=== PATIENT | female | born 1995 | race Caucasian/White ===

== ENCOUNTER 2017-04-03 15:26 | Inpatient (IN) | payer OTHER ==
[~2017-04-03] VITALS: Ht 172.7 cm; Wt 81.6 kg
[~2017-04-03 15:26] MED LIST: SUMATRIPTAN SUC25 MG PO
[2017-04-03] MEDS ORDERED: PRENATAL TABLE1 EAC2 PO (16:06)
[2017-04-03 16:38] LABS: ABSOLUTE BASOPHIL COUNT 0 /CUMM (0.0-0.2); ABSOLUTE EOSINOPHIL COUNT 0 /CUMM (0.0-0.7); ABSOLUTE LYMPH COUNT 1.8 /CUMM (1.2-3.4); ABSOLUTE MONOCYTE COUNT 0.6 /CUMM (0.10-0.60); BASOPHIL % 0.5 % (0.0-2.0); EOSINOPHIL % 0.5 % (0-5); GRANULOCYTE % 73.3 % (42.2-75.2); HEMATOCRIT 30.5 % (37-47); MEAN CORPUSCULAR HGB 24.6 PG (27.0-31.0); MEAN CORPUSCULAR HGB CONC 32.1 G/DL (33.0-37.0); MEAN CORPUSCULAR VOLUME 76.5 FL (81.0-99.0); MEAN PLATELET VOLUME 8.1 FL (7.4-10.4); PLATELET COUNT 306 /CUMM (130-400); RBC DISTRIBUTION WIDTH 17.2 % (11.5-14.5); RED BLOOD CELL CT 3.99 /CUMM (4.20-5.40); WHITE BLOOD CELL COUNT 9.5 /CUMM (4.8-10.8)
--- NOTE | 2017-04-03 18:26 | History & Physical ---
General Information and HPI MD Statement: I have seen and personally examined VIVI BYERS and documented this H&P. The patient is a 21 year old female at 40 weeks and 0 days gestation who presented with a chief complaint of elevated blood pressure in the outpatient setting. Source of Information: patient, old records Exam Limitations: no limitations History of Present Illness: Patient is a 21 year old female who is 40 weeks gestation who had follow up ob visit and noted with elevated bp. No symptoms of preeeclampsia and good movement. 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 Home Who Do You Live With? self Primary Language: Gabonese Smoking Status: Never Smoked ETOH Use: Use noted prior to 20th week as unknown was per patient Illicit Drug Use: denies illicit drug use Living Will? 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 EENTM: Denies: no symptoms. Cardiovascular: Denies: no symptoms. Respiratory: Denies: no symptoms. GI: Denies: no symptoms. Genitourinary: Denies: no symptoms. Musculoskeletal: Denies: no symptoms. Skin: Reports: rash. Neurological/Psychological: Denies: no symptoms. Hematologic/Endocrine: Denies: no symptoms. Immunologic/Allergic: Denies: no symptoms. All Other Systems: Reviewed and Negative Post Menopausal: No Date of Last Pap Smear: 12/17/14 Exam & Diagnostic Data Last 24 Hrs of Vital Signs/I&O See paper record Obstetric Exam Wgt Gained During : 46 lbs Pelvimetry: Gynecoid and normal subpubic angle Dilation (cm): 1 Effacement (%): 50 Station: -2 Membranes: intact Fluid: Intact Fundal Height (cm): 39 Multiple Gestation? No Contractions: Q 2-4 #1 - FHR Baseline: 140 Category: 1 Estimated Weight: EFW by ultrasound 3071 grams (1pd32ks) Presentation: Cephalic Patient for Induction? Yes Jolly Score Jolly Score Response Value Cervix Position: posterior 0 Cervix Consistency: soft 2 Cervix Effacement: 30-50% 1 Cervix Dilation: 1-2 cm 1 Cervix Station: -2 1 Total 5 Physical Exam General Appearance Alert, Oriented X3, Cooperative, No Acute Distress Skin Rash noted bilateral lower extremity. HEENT Atraumatic, PERRLA, EOMI, Mucous Membr. moist/pink Neck Supple Lymphatic Axillary nl, Cervical nl Cardiovascular Regular Rate, No Murmurs Lungs Clear to Auscultation, Normal Air Movement Abdomen Soft, No Tenderness Neurological Normal Gait, Normal Speech, Strength at 5/5 X4 Ext, Normal Tone, Sensation Intact, Cranial Nerves 3-12 NL, 3+ reflexes Extremities No Edema, Normal Pulses, No Tenderness/Swelling Vascular Pulses Symmetrical Breasts Breast appear nl Reproductive (FEMALE) Normal female genitalia Pelvic (FEMALE) Appearance Normal, No Cervical Tenderness Labs Blood Type & Rh: A positive Antibody Screen: negative Hct/Hgb & Platelets #1: 30.4/332 Hct/Hgb & Platelets #2: NA Rubella: immune VDRL #1: negative VDRL #2: negative HbsAg: negative HIV #1: negative HIV #2 negative 1 Hr P 3 Hr PG: NA Group B Strep: Negative Initial Ultrasound: Level 2 wnl except for cardiac focus Anatomy Ultrasound: As noted Ultrasound for EFW: Today's US. BPD 9.21 =37.3 HC 32.83 37.2 AC 34.12 38 FL 6.6 cm 34 weeks MVP 5 cm BPP 8/8 Posterior placenta OP rotation of head. Genetic Testing: Panorama wnl and AFP wnl Horizon carrier screen. CF negative, DMD negative, Fragile X negative and SMA negative Last 24 Hrs of Labs/Derick: Laboratory Tests 01/30/18 1545: Ur Random Creatinine 62.2, U Random Total Protein 650 H, Protein/Creatinin Ratio 10.4 H 04/03/17 1545: CBC w Diff NO MAN DIFF REQ, RBC 3.99 L, MCV 76.5 L, MCH 24.6 L, MCHC 32.1 L, RDW 17.2 H, MPV 8.1, Gran % 73.3, Lymphocytes % 19.3 L, Monocytes % 6.4, Eosinophils % 0.5, Basophils % 0.5, Absolute Granulocytes 7.0 H, Absolute Lymphocytes 1.8, Absolute Monocytes 0.6, Absolute Eosinophils 0, Absolute Basophils 0, HIV 1&2 Ab Western Blot NONREACTIVE, Urinalysis LIGHT H, Urine Color YEL, Urine Clarity CLEAR, Urine pH 6.5, Ur Specific [place] 1.020, Urine Protein >=300 H, Urine Ketones NEG, Urine Nitrite NEG, Urine Bilirubin NEG, Urine Urobilinogen 0.2, Ur Leukocyte Esterase SMALL H, Ur Microscopic SEDIMENT EXAMINED, Urine RBC 1-3, Urine WBC 5-10 H, Ur Epithelial Cells MOD H, Urine Bacteria FEW H, Urine Mucus FEW, Urine Hemoglobin SMALL H, Urine Glucose NEG 04/03/17 1542: Estimated GFR > 60, Uric Acid 6.7 H, AST 28, ALT 42, Lactate Dehydrogenase 537 Assessment/Plan Assessment/Plan: 21 year old with complicated by late entry to care, cardiac focus on fetus, anemia and now with preeclampsia as based on elevated bp and abnormal PC ratio. Patient is though not with preeclampsia with severe features. Jolly score that is unfavorable and she is with a Catagory 1 tracing and a fetus of AGA weight and normal amniotic fluid volume. Patient GBBS negative and hepatitis B nonimmune but negative for Hepatitis B surface antigen 1) Induction of labor indicated for mild preeclampsia at term. I used a mandel given her jolly score instead of misoprostol as she is tonia well. Goal for mandel to remain for 8-12 hours and then reassess cervix. Goals for induction to reduce sequelae related to preeclampsia ie heelp, eclampsia, stroke , liver rupture and or and also to reduce abruption and stillbirth. Given her score that is less than 6 her success at present for vaginal is 50% however with the cervical ripening the goal would be to improve that score and lessen her chance of failure. Risks of induction being pain, failure, abnormal heart rate and or infection. 2) Preeclampsia. Discussed implications to patient of this condition. Potential need for antiHTN agents and also future risk of HTN and Stroke. For future recommend ASA to start by 12-14 weeks to reduce future risks. Potential for Magnesium reviewed. Potential for intrapartum antiHTN agents reviewed. Serial lab tests q6 hours to establish stability and for assessment of heelp. 3) Labor pain mgmt reviewed. Platelets are wnl so epidural is an option however she did consent to nitrous should the need arise. 4) VTE risk reduction with alps while in labor. She plans on breast feeding so at present no meds are contraindicated for same. GBBS negative so no need for PCN unless fever in labor. Epidural and misoprostol may have pyrexia as side effects. May have clears while in labor. Treatment plan reviewed with patient. Expectations reviewed with patient and partner Peds at delivery if abnormal tracing and or need for magnesium. She is up to date with influenza and tdap but will need hepatitis b vaccine again. Breast feeding counseling reviewed and she did go to childbirth classes. Anemia to be rectified with supplementation. As Ranked By This Provider Problem List: 1. Preeclampsia 2. 3. Anemia affecting Core Measures Venous Thromboembolism VTE Risk Factors / No Mechanical VTE Prophylaxis d/t N/A MechProphylax Ordered No VTE Pharm Prophylaxis d/t Other Attending MD Review Statement Attending Statement Attending MD Statement: examined this patient, discussed with family, discussed w/nursing Attending Assessment/Plan: As above
--- NOTE | 2017-04-03 18:27 | PN- OBGYN ---
Surgical Brief Attending Note Brief Attending Note: Transcervical mandel placed in aspeptic technique. Tolerated well EBL 0 cc 24 swedish mandle and 30 cc of saline introduced Taped to leg under tension.
--- NOTE | 2017-04-03 23:04 | PN- OBGYN ---
Surgical Brief Attending Note Brief Attending Note: BP 150/90 Catagory 1 tracing Q2-3 contractions Per patient they are more painful than prior. Allow 12 hours for mandel in cervix If bp greater than 160/105 than start anti HTN and magnesium She is asymptomatic of preeclampsia symptoms Watch urine output Labs pending Previous show no findings of HEELP.
[2017-04-03 23:45] LABS: ABSOLUTE BASOPHIL COUNT 0 /CUMM (0.0-0.2); ABSOLUTE EOSINOPHIL COUNT 0 /CUMM (0.0-0.7); ABSOLUTE GRANULOCYTE CT 10.7 /CUMM (1.4-6.5); ABSOLUTE LYMPH COUNT 1.6 /CUMM (1.2-3.4); ABSOLUTE MONOCYTE COUNT 0.9 /CUMM (0.10-0.60); BASOPHIL % 0.3 % (0.0-2.0); EOSINOPHIL % 0.2 % (0-5); GRANULOCYTE % 80.6 % (42.2-75.2); HEMATOCRIT 29.9 % (37-47); MEAN CORPUSCULAR HGB 24.1 PG (27.0-31.0); MEAN CORPUSCULAR HGB CONC 31.4 G/DL (33.0-37.0); MEAN CORPUSCULAR VOLUME 76.9 FL (81.0-99.0); MEAN PLATELET VOLUME 8.5 FL (7.4-10.4); PLATELET COUNT 290 /CUMM (130-400); RBC DISTRIBUTION WIDTH 17.4 % (11.5-14.5); RED BLOOD CELL CT 3.89 /CUMM (4.20-5.40); WHITE BLOOD CELL COUNT 13.2 /CUMM (4.8-10.8)
--- NOTE | 2017-04-04 02:04 | PN- OBGYN ---
Surgical Brief Attending Note Brief Attending Note: Summary of events C/o pain to nurses and bp was elevated to over 160/90. I ordered stadol and started magnesium for seizure prophylaxis BP now 138/90. Contraction pattern spaced out and at attempt to place misoprostol the cervical mandel was displaced and patient is 6/90/-2 Now favorable jolly and in my opinion active labor. Epidural requested Mandel in place to measure urine output Labs. Hct 29.9 and platelets 290. Anticipate vaginal . Watch for inversion as on magnesium and nulliparity as risk for same. PPH precautions because of magnesium No findings of HEELP at present
[2017-04-04 04:37] LABS: ABSOLUTE BASOPHIL COUNT 0 /CUMM (0.0-0.2); ABSOLUTE EOSINOPHIL COUNT 0 /CUMM (0.0-0.7); ABSOLUTE GRANULOCYTE CT 14.1 /CUMM (1.4-6.5); ABSOLUTE LYMPH COUNT 0.9 /CUMM (1.2-3.4); ABSOLUTE MONOCYTE COUNT 0.6 /CUMM (0.10-0.60); BASOPHIL % 0.1 % (0.0-2.0); EOSINOPHIL % 0 % (0-5); GRANULOCYTE % 90.4 % (42.2-75.2); HEMATOCRIT 28.3 % (37-47); MEAN CORPUSCULAR HGB 24.7 PG (27.0-31.0); MEAN CORPUSCULAR HGB CONC 32.2 G/DL (33.0-37.0); MEAN CORPUSCULAR VOLUME 76.5 FL (81.0-99.0); MEAN PLATELET VOLUME 7.8 FL (7.4-10.4); PLATELET COUNT 271 /CUMM (130-400); RBC DISTRIBUTION WIDTH 17.3 % (11.5-14.5); WHITE BLOOD CELL COUNT 15.6 /CUMM (4.8-10.8)
--- NOTE | 2017-04-04 08:31 | PN- OBGYN ---
Surgical Brief Attending Note Brief Attending Note: Assessment made for patient given catagory 2 tracing 9/100/-1 intact forebag. No molding AROM light meconium BP 126/72 Asymptomatic of preeclampsia symptoms UO decreased so magnesium was reduced to 1 gram per hour and respiratory rate was reduced. Catagory 1 tracing at present Contraction pattern irregular so oxytocin restarted. Beginning to feel pressure Hct 28.5 and platelets 271. May be dilutional. Creatinine 0.8 and liver function wnl. Once delivered and BP is normal than will not need 24 hours of magnesium however new recommendation from ACOG is 8 hours of magnesium in total to avoid changes in maternal bonding or prolonged bedrest. Peds informed of meconium as was patient. Anticipate vaginal .
--- NOTE | 2017-04-04 11:20 | Labor & Delivery Summary ---
Delivery Summary Vaginal Delivery: Vaginal: spontaneous Episiotomy/Lacerations: Episiotomy/Lacerations: 2nd degree fourchette Repair: 2-0 SH Anesthesia: epidural Placenta: Placenta: spontanteous, normal, 3 vessel, abnormal (fibrosis) Anesthesia: Epidural Cord PH Value: 7.32 Baby's Weight: 2735 g Apgars - 1 Min: 9 Apgars - 5 Min: 9 Additional Comments: Delivered through intact perineum. MOISES at delivery and compound hand. Corporal cord noted. Shoulders passed spontaneously. given to Peds and no mec below cords. Apgars 9 9 Placenta to pathology to assess secondary to PIH Fibrosis of placenta noted Central cord insertion. No abruption noted Repair completed and rectum intact. maintain on magnesium until 150 cc per hour over two hours and normotensive and then dc. Did get at least 8 hours of same. EBL 300 cc Tonic with pitocin
--- NOTE | 2017-04-04 12:36 | PN- OBGYN ---
Surgical Brief Attending Note Brief Attending Note: 600 cc of diuresis from delivery at 942 am. Increase to 2 grams magnesium as excellent diuresis. Start on beta naye as bp sustained over 150 systolic. Pulse was 120 so use that instead of calcium channel naye. Was on alps during whole induction for vte risk reduction. Maintain on magnesium until 6 hours . [facility] 07/2015 Short-course, i.e., 6-h, magnesium sulfate therapy is as effective as conventional 24-h magnesium sulfate therapy in preventing convulsions in severe preeclampsia. AJOG 08/2004 The use of the onset of diuresis in the period as the determinant clinical parameter for the discontinuation of magnesium sulfate in patients with severe preeclampsia was associated with no untoward outcomes or need for the re-initiation of treatment.
--- NOTE | 2017-04-04 15:17 | PN- OBGYN ---
Surgical Brief Attending Note Brief Attending Note: Patient with mild nausea Feels tired No headache no ruq pain bp 130/80 pulse 90s Aox3 urine output since delivery over 1000 cc. Preeclampsia with severe features No evidence of HEELP DC magnesium as received over 8 hours of magnesium prior to delivery and also now to have completed 6 hours . If symptoms of PIH in the next 18 hours than restart magnesium however in my opinion this wont be the case. CBC in the am to assess hct stability. Advance to regular diet Circumcision tomorrow afternoon and dc sunday the Apr. CBC follow up next week for bp assessment and assessment I will see at 4-6 weeks. Future need for asa reviewed.
[2017-04-05 08:48] LABS: ABSOLUTE BASOPHIL COUNT 0 /CUMM (0.0-0.2); ABSOLUTE EOSINOPHIL COUNT 0 /CUMM (0.0-0.7); ABSOLUTE LYMPH COUNT 1.9 /CUMM (1.2-3.4); ABSOLUTE MONOCYTE COUNT 0.5 /CUMM (0.10-0.60); BASOPHIL % 0.3 % (0.0-2.0); EOSINOPHIL % 0.3 % (0-5); GRANULOCYTE % 82.8 % (42.2-75.2); HEMATOCRIT 25.4 % (37-47); MEAN CORPUSCULAR HGB 24.9 PG (27.0-31.0); MEAN CORPUSCULAR HGB CONC 32.4 G/DL (33.0-37.0); MEAN CORPUSCULAR VOLUME 76.8 FL (81.0-99.0); MEAN PLATELET VOLUME 8.1 FL (7.4-10.4); PLATELET COUNT 239 /CUMM (130-400); RBC DISTRIBUTION WIDTH 18.3 % (11.5-14.5); RED BLOOD CELL CT 3.31 /CUMM (4.20-5.40); WHITE BLOOD CELL COUNT 14.4 /CUMM (4.8-10.8)
--- NOTE | 2017-04-05 11:43 | PN- Post Delivery/GYN ---
Subjective Subjective: Feels much better than yesterday. Breast feeding without issue Pain controlled More lochia yesterday but minimal today Review of Systems Constitutional: Denies: no symptoms. EENTM: Denies: no symptoms. Cardiovascular: Denies: no symptoms. Respiratory: Denies: no symptoms. Gastrointestinal: Denies: no symptoms. Genitourinary: Denies: no symptoms. Musculoskeletal: Denies: no symptoms. Skin: Denies: no symptoms. Neurological/Psychological: Denies: no symptoms. Hematologic/Endocrine: Denies: no symptoms. Immunologic/Allergic: Denies: no symptoms. Objective Last 24 Hrs of Vital Signs/I&O Vital Signs Date Time Temp Pulse Resp B/P B/P Pulse O2 O2 Flow FiO2 Mean Ox Delivery Rate 04/05 000 97.8 77 20 110/70 04/04 1246 100.1 120 20 144/89 Physical Exam General Appearance Alert, Oriented X3, Cooperative, No Acute Distress HEENT Atraumatic Cardiovascular Regular Rate Lungs Clear to Auscultation, Normal Air Movement Abdomen Soft, No Tenderness Neurological Normal Gait, Normal Speech, Strength at 5/5 X4 Ext, Normal Tone, Sensation Intact Extremities No Edema Vascular Normal Pulses Breasts Breast appear nl Current Medications: Current Medications Sig/Jhony Start time Last Medication Dose Route Stop Time Status Admin Acetaminophen 650 MG Q4P PRN 04/04 1100 AC PO Ascorbic Acid 500 MG BID 04/04 1115 AC 04/05 PO 0609 Folic Acid 1 MG DAILY 04/04 1116 AC 04/04 PO 1812 Ibuprofen 800 MG Q6P PRN 04/04 1100 AC 04/05 PO 0617 Labetalol HCl 100 MG Q12H 04/05 1200 AC PO Labetalol HCl 100 MG BID 04/04 1231 DC 04/05 PO 0007 Lactobacillus 1 CAP DAILY 04/04 1115 AC 04/04 Acidophilus PO 1813 Magnesium Sulfate 40 GM Q20H 04/04 0015 DC 04/04 Sterile Water 1,000 ML IV 0100 Ondansetron HCl 4 MG ONCE ONE 04/04 1445 DC 04/04 IV 04/04 1446 1448 Oxytocin 20 UNITS Q5H 04/04 1100 DC Lactated Ringer's 1,000 ML IV 04/04 1559 Last 24 Hrs of Labs/Derick: Laboratory Tests 04/05/17 0610: CBC w Diff NO MAN DIFF REQ, RBC 3.31 L, MCV 76.8 L, MCH 24.9 L, MCHC 32.4 L, RDW 18.3 H, MPV 8.1, Gran % 82.8 H, Lymphocytes % 12.9 L, Monocytes % 3.7, Eosinophils % 0.3, Basophils % 0.3, Absolute Granulocytes 12.0 H, Absolute Lymphocytes 1.9, Absolute Monocytes 0.5, Absolute Eosinophils 0, Absolute Basophils 0 Imaging Findings: Weight 168 Down from 180 predelivery. Assessment/Plan Assessment/Plan PPD#1 anemia noted. She is not orthostatic. To start iron supplementation upon for two weeks and reassess. She is getting folic acid and vitamin c here. Denies heavy lochia and breast feeding will help with same. Hct 25 and on admission 30. Platelets over 200k. More likely vasoconstriction and iron deficiency anemia. Lower risk for delayed hemorrhage but counseling if occurs provided. Preeclampsia with severe features. Weight down 12 lbs in 24 hours and excellent diuresis. She is on beta naye for BP control. I assessed her BP today and was 120/80. Most likely by tomorrow if BP continue to be normal than dc of same. She will have follow up next week after DC by the CBC. No symptoms of PIH noted. has not voided yet. Peds aware. No circ today. appears in no distress and is brest feeding. Up to date with flu and tdap vaccines. Face to face hospital time 15 minutes. All questions answered. Problem List: 1. Preeclampsia 2. anemia 3. care and examination immediately after delivery Attending MD Review Statement Attending Statement Attending MD Statement: examined this patient, discussed with nursing Attending Assessment/Plan: as noted
[2017-04-06] MEDS ORDERED: LABETALOL HCL100 M1 PO (10:04)
[2017-04-06] MEDS ORDERED: IBUPROFEN800 M1 PO (10:04)
--- NOTE | 2017-04-06 10:17 | PN- Post Delivery/GYN ---
Subjective Subjective: Denies headaches Denies visual changes Denies dizzness nor fatigue Breast feeding without issue. Review of Systems Constitutional: Denies: no symptoms. EENTM: Denies: no symptoms. Cardiovascular: Denies: no symptoms. Respiratory: Denies: no symptoms. Gastrointestinal: Denies: no symptoms. Genitourinary: Denies: no symptoms. Musculoskeletal: Denies: no symptoms. Skin: Denies: no symptoms (Denies itching). Neurological/Psychological: Denies: no symptoms. Hematologic/Endocrine: Denies: no symptoms. Immunologic/Allergic: Denies: no symptoms. Objective Last 24 Hrs of Vital Signs/I&O Vital Signs Date Time Temp Pulse Resp B/P B/P Pulse O2 O2 Flow FiO2 Mean Ox Delivery Rate 04/05 2359 97.4 77 20 118/70 Physical Exam: Weight 166. Physical Exam General Appearance Alert, Oriented X3, Cooperative, No Acute Distress Skin Lower extremities with papular rash Upper arm with papular rash Abdomen with raised striae HEENT Atraumatic Neck Supple Cardiovascular Regular Rate Lungs Normal Air Movement Abdomen Soft, No Tenderness Neurological Normal Gait, Normal Speech, Strength at 5/5 X4 Ext, Normal Tone, Sensation Intact Extremities No Edema Breasts Breast appear nl Current Medications: Current Medications Sig/Jhony Start time Last Medication Dose Route Stop Time Status Admin Acetaminophen 650 MG Q4P PRN 04/04 1100 AC PO Ascorbic Acid 500 MG BID 04/04 1115 AC 04/05 PO 0609 Folic Acid 1 MG DAILY 04/04 1116 AC 04/04 PO 1812 Ibuprofen 800 MG .STK-MED ONE 04/05 2017 DC PO 04/05 2018 Ibuprofen 800 MG .STK-MED ONE 04/05 1141 DC PO 04/05 1142 Ibuprofen 800 MG Q6P PRN 04/04 1100 AC 04/05 PO 2019 Labetalol HCl 100 MG Q12H 04/05 1200 AC 04/05 PO 2359 Lactobacillus 1 CAP DAILY 04/04 1115 AC 04/04 Acidophilus PO 1813 Last 24 Hrs of Labs/Derick: See paper. AM BP of 130/80 Assessment/Plan Assessment/Plan PPD #2 Intrapartum preeclampsia with severe features Iron deficiency anemia. DC home today. Cardiac. BP is controlled on labetalol 100 mg BID. Most likely will only need short course for same. Future asa to reduce risk with next reviewed. No sx of preeclampsia but warning signs reviewed. Down 14 lbs since delivery so brisk diuresis most likely the reason. Has CBC follow up for bp assessment on the . VTE risks reviewed. Warning signs given. Anemia. Hct of 25 and MCV 70's. To start on ferralet daily for one week to improve iron stores. Than convert back to her daily. LDH is normal so doubt hemolysis as reason. Nutritional counseilng provided. Breast feeding counseling reviewed. Vitamin D for support and to reduce depression. Nettle and fenugreek benefits reviewed. Discussed lanolin for sore nipples. Continue on probiotics to reduce pp depression and allow for normal gi function. Rash in my opinion in abdomen and arms may be related to PUPPS. Topical aloe and or oatmeal for relief. If itching starts that low dose topical hydrocortisone. Most likely to resolve in short duration as she delivered. Contraception. 6 weeks for IUD.
[2017-04-06 12:56] VITALS: BP 138/92
== END 2017-04-06 14:05 | DRG 775 ==
LOC: GNO 15:26
PROVIDERS: Obstetrics & Gynecology
PROC: 10E0XZZ Delivery of Products of Conception, External Approach (ICD-10-PCS; principal; 2017-04-03)
PROC: 0KQM0ZZ Repair Perineum Muscle, Open Approach (ICD-10-PCS; 2017-04-03)
DX: O14.14 Severe pre-eclampsia complicating childbirth (principal); O43.893 Other placental disorders, third trimester; O70.1 Second degree perineal laceration during delivery; Z3A.40 40 weeks gestation of pregnancy; Z37.0 Single live birth; O77.0 Labor and delivery complicated by meconium in amniotic fluid
CPT/HCPCS: GNOP; GNOS; 81001; 82570; 87389; 88307; J3475; J3490; J7120